=== PATIENT | male | born 1970 | race Caucasian/White ===

== ENCOUNTER 2025-04-26 12:29 | Inpatient (IN) | payer OTHER, SELFPAY ==
[2025-04-26] VITALS (7 sets, daily range): BP systolic 129–149; BP diastolic 74–92; PULSE 81–98; RESP 12–20; TEMP 36.4–36.9; O2SAT 95–99; BMI 25.8
--- NOTE | 2025-04-26 13:03 | ECG_ITS ---
Test Reason : OMORUNA Blood Pressure : */* mmHG Vent. Rate : 98 BPM Atrial Rate : 98 BPM P-R Int : 174 ms QRS Dur : 134 ms QT Int : 394 ms P-R-T Axes : 77 35 44 degrees QTcB Int : 503 ms Sinus rhythm with Fusion complexes Right bundle branch block Abnormal ECG No previous ECGs available Referred By: Mindy Hickey Electronically Signed By: Darron Oh
[2025-04-26 13:35] LABS: MANUAL DIFF FLAG NO
[2025-04-26 13:47] LABS: Hematocrit 37.6 % (42.0-52.0); Hemoglobin 12.9 g/dl (14.0-18.0); Imm Gran Abs Auto 0.03 X10*3/uL (0.00-0.03); Imm Gran Pct Auto 0.6 % (0.0-0.4); Lymphocytes Absolute Auto 0.9 X10*3/uL (1.2-4.9); Mean Corpuscular HGB Conc 34.3 g/dl (31.0-36.0); Mean Corpuscular Hemoglobin 31.9 pg (27.0-33.0); Mean Corpuscular Volume 92.8 fL (80.0-98.0); NRBC Abs Auto 0.000 X10*3/uL (0.0-0.012); NRBC Pct Auto 0.0 /100WBC (0.0-0.2); Red Blood Count 4.05 X10*6/uL (4.60-5.80); White Blood Count 4.7 X10*3/uL (4.8-10.8)
[2025-04-26] MEDS: Lactated Ringers 1,000 ML 999 ML IV ×2 (13:50→16:34)
[2025-04-26] MEDS: diazePAM 10 MG/2 ML CARTRIDGE 5 MG IVPUSH (13:50)
[2025-04-26] MEDS: Thiamine HCL 200 MG in 0.9 % Sodium Chloride 100 ML 204 MG IV (13:53)
[2025-04-26] MEDS: Magnesium Sulfate/H2O 2 GM/50 ML PIGGYBACK IV (13:53)
[2025-04-26 13:57] LABS: Platelet Count 94 X10*3/uL (160-400)
[2025-04-26 14:07] LABS: Acetaminophen LAB < 3 mcg/mL (<30); Salicylate < 5.0 mg/dL (15-30)
--- NOTE | 2025-04-26 14:09 | PC.NURSE ---
pt is alert and oriented, skin flushed in color, respirations even and unlabored, ls clear, pt reports being a daily drinker and is cutting down om his drinking, states he typically drinks a coupe od strong drinks in a day, last drink was this morning, no visible hand tremor at this time is reporting a headache, nausea and keeps spitting into a vomit bag and having hiccups, also states feeling anxious, vs stable at this time, pt also states that he has not eaten anything in 10 days, bowel sounds in all 4 quadrants and abd soft and non-tender pt is stating having blood in his stool for the last couple of days
[2025-04-26 14:20] LABS: Alanine Aminotransferase 136 U/L (0-40); Albumin Level 4.8 g/dL (3.5-5.0); Alkaline Phosphatase 105 U/L (39-117); Anion Gap 33 (12-20); Aspartate Amino Transferase 171 U/L (5-37); Blood Urea Nitrogen 20 mg/dL (9-16); Calcium 8.8 mg/dL (8.4-10.2); Carbon Dioxide 15 mmol/L (22-29); Chloride 91 mmol/L (96-108); Creatinine Clr Calc Pharmacy 104.1; Estimated Glomerular Filt Rate > 60; Lipase 53 U/L (8-78); Magnesium 2.2 mg/dL (1.6-2.6); Potassium 4.9 mmol/L (3.3-5.1); Sodium 134 mmol/L (135-145); Total Protein 7.7 g/dL (6.5-8.0)
[2025-04-26 15:14] LABS: Appearance Urine Cloudy; Glucose Urine UA Negative (Negative); PH 6.0 (5.0-9.0); Specific Gravity - Urine 1.020 (1.005-1.025); UMIC TRIGGER UACC YES
[2025-04-26 15:24] LABS: Cannabinoid Screen Urine Not Detected (Not Detect)
[2025-04-26 17:02] LABS: Venous Blood Gas Refer to POC result
[2025-04-26 17:07] LABS: VBG HCO3 19 mmol/L (22-26); VBG O2 % Saturation 100.0 %
[2025-04-26 17:21] LABS: Anion Gap 29 (12-20); Blood Urea Nitrogen 17 mg/dL (9-16); Calcium 8.8 mg/dL (8.4-10.2); Carbon Dioxide 18 mmol/L (22-29); Chloride 91 mmol/L (96-108); Creatinine Clr Calc Pharmacy 115.5; Estimated Glomerular Filt Rate > 60; Potassium 3.8 mmol/L (3.3-5.1); Sodium 134 mmol/L (135-145)
--- NOTE | 2025-04-26 17:26 | ED.GENADULT ---
HPI - General Adult General Chief complaint: General Medical Stated complaint[facility] Time Seen by Provider: 04/26/25 16:09 Source: patient, RN notes reviewed and old records reviewed Mode of arrival: EMS Limitations: no limitations History of Present Illness ED Provider: Daniele ROSARIO narrative: 55-year-old male with a past medical history significant for alcohol dependence presents for evaluation of alcohol withdrawal. Patient reports he has been drinking daily for about 5 weeks pain He reports having at least 5 drinks per day in his last drink was at 9 a.m. this morning [facility]. He endorses anxiety, restlessness, nausea and vomiting He reports a history of alcohol withdrawal seizures but does not believe he has had any recently He complains of a mild headache. He denies any abdominal pain but does complain of some bright red blood per rectum He noticed this about 5 days ago He denies any history of esophageal varices Related Data Allergies Allergy/AdvReac Type Severity Reaction Status Date / Time No Known Allergies Allergy Verified 04/26/25 12:57 Review of Systems Constitutional: Constitutional: Denies body ache(s), Denies chills, Denies fever(s) and Reports headache(s) Eyes: Eyes: Denies blurry vision ENT: Denies vertigo, Denies dizziness and Reports headache(s) Cardiovascular: Cardiovascular: Denies chest pain and Denies dyspnea on exertion Respiratory: Respiratory: Denies cough and Denies dyspnea on exertion Gastrointestinal: Gastrointestinal: Denies abdominal pain, Denies melena, Reports hematochezia, Denies diarrhea, Denies loose stools, Reports nausea, Reports vomiting and Denies hematemesis Musculoskeletal: Musculoskeletal: Denies back pain Integumentary/Breasts: Skin/Breast: Denies rash Neurologic: Denies vertigo, Denies dizziness and Reports headache(s) Psychiatric: Psychiatric: Reports anxiety and Denies suicidal ideation PMFSH Social History Social History Alcohol intake: current Alcohol intake frequency: 3 or more drinks per day Smoked in Last 30 Days: No Use of substances other than those prescribed or required for medical reasons: Yes Substance Use Type: Marijuana Substance Use Frequency: Occasionally Advance Directives: No Advance Directives Information Provided: No Do you have a plan to hurt others: No Plan Physical Exam ED Vital Signs: Vital Signs - 24 hr 04/26/25 12:50 04/26/25 14:06 04/26/25 15:57 Temperature 97.9 F 98.4 F Pulse Rate 93 94 87 Respiratory Rate 20 18 16 Blood Pressure 149/91 H 144/92 H 149/85 H Pulse Oximetry 98 99 98 Oxygen Delivery Method Room Air Room Air Room Air 04/26/25 17:17 Temperature Pulse Rate 83 Respiratory Rate 18 Blood Pressure 138/74 Pulse Oximetry 98 Oxygen Delivery Method Room Air BMI result Body Mass Index 25.8 Const General: healthy appearing, comfortable, no acute distress, alert and awake Nutritional Appearance: well nourished Orientation/consciousness: patient oriented x3 HENMT Head: Yes normocephalic and Yes atraumatic Eyes Eyelids: Yes eyelids normal Conjunctivae: conjunctivae normal Sclerae: sclerae normal Corneas: corneas normal Pupils: Equal, round and reactive pupils present EOM: EOMs intact bilaterally Neck Neck: Yes full ROM Resp Effort & Inspection: normal respiratory effort, able to speak in complete sentences and not labored Cardio Rate: regular rate Rhythm: regular rhythm GI Other: Patient declined rectal examination Inspection: No distended Palpation (GI): Soft to palpation, not firm, nontender, no guarding and not rigid Skin General skin exam: elasticity normal Neuro General: patient oriented x3 Cranial nerves: Yes CN's II-XII intact bilaterally, Yes Equal, round and reactive pupils present and Yes Bilaterally intact EOM present Cognition (Neuro): normal cognition Extrem Other: Moving all extremities well without any obvious deformities Course Reevaluation(s) Reevaluation #1: Patient's repeat BNP still shows a fairly significant anion gap of 29 with a carbon dioxide of 18. We will discuss with the hospitalist for admission. I ordered phenobarb for treatment of his alcohol withdrawal Time: 17:38 Medications Administered Discontinued Medications Generic Name Dose Route Start Last Admin Trade Name Freq PRN Reason Stop Dose Admin Diazepam 5 mg 04/26/25 13:36 04/26/25 13:50 Diazepam 10 Mg/2 Ml Cartridge IVPUSH 04/26/25 13:37 5 mg STAT STA Administration Lactated Ringer's 1,000 mls @ 999 mls/hr 04/26/25 13:36 04/26/25 16:05 Lr IV 04/26/25 14:36 Infused .Q1H1M ONE Infusion Thiamine HCl 200 mg/ Sodium 102 mls @ 204 mls/hr 04/26/25 13:36 04/26/25 14:30 Chloride IV 04/26/25 14:05 Infused ONCE ONE Infusion Magnesium Sulfate 2 gm in 50 mls @ 25 mls/hr 04/26/25 13:36 04/26/25 15:56 Magnesium Sulfate/H2o IV 04/26/25 15:35 Infused ONCE ONE Infusion Lactated Ringer's 1,000 mls @ 999 mls/hr 04/26/25 16:30 04/26/25 16:34 Lr IV 04/26/25 17:30 999 mls/hr .Q1H1M AJITH Administration Folic Acid 1 mg/ Sodium 50.2 mls @ 100.4 mls/hr 04/26/25 17:00 04/26/25 17:14 Chloride IV 04/26/25 17:29 100.4 mls/hr ONCE ONE Administration Ondansetron HCl 4 mg 04/26/25 13:36 04/26/25 13:50 Ondansetron Hcl 4 Mg/2 Ml Vial IVPUSH 04/26/25 13:37 4 mg ONCE ONE Administration Medical Decision Making Medical Decision Making [facility] Narrative: 55-year-old male presents for evaluation of alcohol dependence. He reports his last drink was at 9 a.m. and endorses alcohol withdrawal symptoms. His CIWA was reportedly 5 on arrival. He was treated with lactated Ringer's, with thiamine, IV diazepam prior to my evaluation. He reports anxiety, restlessness and continued nausea but is not vomiting. His vital signs are stable. His physical exam is quite reassuring, he is resting comfortably. His labs are significant for a thrombocytopenia which is likely due to alcoholic liver disease. He has a very mild anemia with a hemoglobin of 12.9 and a hematocrit of 37.6. We do not have any previous labs for comparison. The patient does endorse bright red blood per rectum and denies any history of esophageal varices. He has not hematemesis. The patient refused digital rectal examination for guaiac testing. We will attempt to send a stool sample for guaiac testing if he is able to provide one. The patient has multiple electrolyte abnormalities including a sodium 134, chloride of 91, carbon dioxide level of 15 with an anion gap of 33 and an elevated BUN of 20. This is likely due to alcoholic ketoacidosis. He also has elevated AST and ALT likely due to alcoholic liver disease. We will treat with IV fluids, I will obtain a VBG and a repeat BMP after a second-degree with fluids Differential Diagnosis Differential Diagnoses: The differential diagnosis associated with the presentation includes Ketoacidosis Starvation ketosis JESU Liver cirrhosis Hemorrhoids GI bleed Admission/Observation Consideration of admission/observation: Escalation of care including admission/observation considered Lab Data MDM Lab Attestation statement: I reviewed the patient's lab results. As above 04/26/25 13:30 04/26/25 16:51 Labs: Lab Results 04/26/25 04/26/25 04/26/25 Range/Units 13:30 15:04 16:50 WBC 4.7 L (4.8-10.8) X10*3/uL RBC 4.05 L (4.60-5.80) X10*6/uL Hgb 12.9 L (14.0-18.0) g/dl Hct 37.6 L (42.0-52.0) % MCV 92.8 (80.0-98.0) fL MCH 31.9 (27.0-33.0) pg MCHC 34.3 (31.0-36.0) g/dl RDW 14.2 (11.0-16.0) % Plt Count 94 L (160-400) X10*3/uL MPV 11.1 (9.4-12.4) fL Immature Gran % (Auto) 0.6 H (0.0-0.4) % Neut % (Auto) 68.1 (45-73) % Lymph % (Auto) 19.7 L (20-40) % [place] % (Auto) 9.4 (2-11) % Eos % (Auto) 1.1 (0-4) % Baso % (Auto) 1.1 (0-2) % Lymph # (Auto) 0.9 L (1.2-4.9) X10*3/uL [place] # (Auto) 0.4 (0.1-1.2) X10*3/uL Eos # (Auto) 0.1 (0.0-0.4) X10*3/uL Baso # (Auto) 0.1 (0.0-0.2) X10*3/uL Abs Immat Gran (auto) 0.03 (0.00-0.03) X10*3/uL Absolute Neuts (auto) 3.2 (2.0-8.3) x10*3/uL Absolute Nucleated RBC 0.000 (0.0-0.012) X10*3/uL Nucleated RBC % (auto) 0.0 (0.0-0.2) /100WBC VBG pH 7.46 H (7.32-7.43) VBG pCO2 27 mmHg VBG pO2 131 mmHg VBG HCO3 19 L (22-26) mmol/L VBG O2 Saturation 100.0 % VBG Base Excess -2.6 mmol/L Sodium 134 L (135-145) mmol/L Potassium 4.9 (3.3-5.1) mmol/L Chloride 91 L (96-108) mmol/L Carbon Dioxide 15 L (22-29) mmol/L Anion Gap 33 H (12-20) BUN 20 H (9-16) mg/dL Creatinine 0.91 (0.5-1.4) mg/dL Estim Creat Clear Calc 104.1 Estimated GFR > 60 Random Glucose 89 (60-115) mg/dL Calcium 8.8 (8.4-10.2) mg/dL Magnesium 2.2 (1.6-2.6) mg/dL Total Bilirubin 1.3 H (0.0-1.0) mg/dL Direct Bilirubin 0.4 (0.0-0.5) mg/dL AST 171 H (5-37) U/L ALT 136 H (0-40) U/L Alkaline Phosphatase 105 (39-117) U/L Total Protein 7.7 (6.5-8.0) g/dL Albumin 4.8 (3.5-5.0) g/dL Lipase 53 (8-78) U/L Urine Color Dark Yellow Urine Appearance Cloudy Urine pH 6.0 (5.0-9.0) Ur Specific [place] 1.020 (1.005-1.025) Urine Protein 100 (2+) H (Neg-Trace) mg/dL Urine Glucose (UA) Negative (Negative) mg/dL Urine Ketones 80 (Negative) mg/dL Urine Blood Small (1+) H (Negative) Urine Nitrite Negative (Negative) Ur Leukocyte Esterase Negative (Negative) Urine RBC 0-2 (0-2) /HPF Urine WBC 0-5 (0-5) /HPF Ur Squamous Epith Cells 0-2 (0-2) /HPF Ur Transition Epith Cell Present Urine Bacteria Trace (None Seen) Hyaline Casts 3-5 (0-2) /LPF Granular Casts Present Salicylates < 5.0 L (15-30) mg/dL Urine Opiates Screen Not Detected (Not Detect) Ur Buprenorphine Scrn Not Detected (Not Detect) ng/mL Ur Oxycodone Screen Not Detected (Not Detect) ng/mL Urine Methadone Screen Not Detected (Not Detect) ng/mL Urine Fentanyl Screen Not Detected (Not Detect) Acetaminophen < 3 (<30) mcg/mL Ur Barbiturates Screen Not Detected (Not Detect) Ur Phencyclidine Scrn Not Detected (Not Detect) Ur Amphetamines Screen Not Detected (Not Detect) U Benzodiazepines Scrn POSITIVE H (Not Detect) Urine Cocaine Screen Not Detected (Not Detect) U Marijuana (THC) Screen Not Detected (Not Detect) Ethyl Alcohol 134 mg/dL 04/26/25 Range/Units 16:51 WBC (4.8-10.8) X10*3/uL RBC (4.60-5.80) X10*6/uL Hgb (14.0-18.0) g/dl Hct (42.0-52.0) % MCV (80.0-98.0) fL MCH (27.0-33.0) pg MCHC (31.0-36.0) g/dl RDW (11.0-16.0) % Plt Count (160-400) X10*3/uL MPV (9.4-12.4) fL Immature Gran % (Auto) (0.0-0.4) % Neut % (Auto) (45-73) % Lymph % (Auto) (20-40) % [place] % (Auto) (2-11) % Eos % (Auto) (0-4) % Baso % (Auto) (0-2) % Lymph # (Auto) (1.2-4.9) X10*3/uL [place] # (Auto) (0.1-1.2) X10*3/uL Eos # (Auto) (0.0-0.4) X10*3/uL Baso # (Auto) (0.0-0.2) X10*3/uL Abs Immat Gran (auto) (0.00-0.03) X10*3/uL Absolute Neuts (auto) (2.0-8.3) x10*3/uL Absolute Nucleated RBC (0.0-0.012) X10*3/uL Nucleated RBC % (auto) (0.0-0.2) /100WBC VBG pH (7.32-7.43) VBG pCO2 mmHg VBG pO2 mmHg VBG HCO3 (22-26) mmol/L VBG O2 Saturation % VBG Base Excess mmol/L Sodium 134 L (135-145) mmol/L Potassium 3.8 D (3.3-5.1) mmol/L Chloride 91 L (96-108) mmol/L Carbon Dioxide 18 L (22-29) mmol/L Anion Gap 29 H (12-20) BUN 17 H (9-16) mg/dL Creatinine 0.82 (0.5-1.4) mg/dL Estim Creat Clear Calc 115.5 Estimated GFR > 60 Random Glucose 81 (60-115) mg/dL Calcium 8.8 (8.4-10.2) mg/dL Magnesium (1.6-2.6) mg/dL Total Bilirubin (0.0-1.0) mg/dL Direct Bilirubin (0.0-0.5) mg/dL AST (5-37) U/L ALT (0-40) U/L Alkaline Phosphatase (39-117) U/L Total Protein (6.5-8.0) g/dL Albumin (3.5-5.0) g/dL Lipase (8-78) U/L Urine Color Urine Appearance Urine pH (5.0-9.0) Ur Specific [place] (1.005-1.025) Urine Protein (Neg-Trace) mg/dL Urine Glucose (UA) (Negative) mg/dL Urine Ketones (Negative) mg/dL Urine Blood (Negative) Urine Nitrite (Negative) Ur Leukocyte Esterase (Negative) Urine RBC (0-2) /HPF Urine WBC (0-5) /HPF Ur Squamous Epith Cells (0-2) /HPF Ur Transition Epith Cell Urine Bacteria (None Seen) Hyaline Casts (0-2) /LPF Granular Casts Salicylates (15-30) mg/dL Urine Opiates Screen (Not Detect) Ur Buprenorphine Scrn (Not Detect) ng/mL Ur Oxycodone Screen (Not Detect) ng/mL Urine Methadone Screen (Not Detect) ng/mL Urine Fentanyl Screen (Not Detect) Acetaminophen (<30) mcg/mL Ur Barbiturates Screen (Not Detect) Ur Phencyclidine Scrn (Not Detect) Ur Amphetamines Screen (Not Detect) U Benzodiazepines Scrn (Not Detect) Urine Cocaine Screen (Not Detect) U Marijuana (THC) Screen (Not Detect) Ethyl Alcohol mg/dL Discharge Plan Discharge Clinical Impression: Alcohol withdrawal Patient Disposition: Admitted As Inpatient Print Language: Andorran
--- NOTE | 2025-04-26 18:05 | P.HPHOSP_ITS ---
History of Present Illness Date of Service: 04/26/25 Chief Complaint: tremors 55M PMH alcohol dependence, mood disorder presented with withdrawal symptoms. Patient states that he has been trying to cut back on his drinking and has since been starting to have difficulty sleeping, tremulous so he came to ED. Patient is also noted worsening appetite over the past week with close to 0 nutritional intake. Also noted to have epistaxis, bleeding gums, bright red blood per rectum. In ED noted to have anion gap metabolic acidosis with positive ketones in urine. Review of Systems 2 Review of Systems: Yes all other systems are reviewed and are negative [facility] Medical History (Updated 04/26/25 @ 18:07 by Yayo Godinez MD) Alcohol dependence Social History Alcohol intake: current Alcohol intake frequency: 3 or more drinks per day Smoked in Last 30 Days: No Use of substances other than those prescribed or required for medical reasons: Yes Substance Use Type: Marijuana Substance Use Frequency: Occasionally Advance Directives: No Advance Directives Information Provided: No Do you have a plan to hurt others: No Plan Meds Allergies Allergy/AdvReac Type Severity Reaction Status Date / Time No Known Allergies Allergy Verified 04/26/25 12:57 Active Medications: Current Medications Acetaminophen (Acetaminophen 325 Mg Tablet) 650 mg PO Q6H PRN PRN Reason: Pain, Mild 1-3,fever,headache Calcium Carbonate (Calcium Carbonate 750 Mg Tab.Chew) 750 mg PO Q4H PRN PRN Reason: Heartburn Folic Acid (Folic Acid 1 Mg Tablet) 1 mg PO DAILY [facility] Thiamine HCl 100 mg/ Sodium (Chloride) 101 mls @ 202 mls/hr IV BID AJITH Magnesium Hydroxide (Milk Of Magnesia 30 Ml Oral.Susp) 30 ml PO DAILY PRN PRN Reason: Constipation Melatonin (Melatonin 3 Mg Tablet) 6 mg PO BEDTIME PRN PRN Reason: Insomnia Multivitamins/Vitamin C (Multivitamin Tablet) 1 tab PO DAILY AJITH Omeprazole (Omeprazole 20 Mg Capsule.Dr) 20 mg PO DAILY@0630 AJITH Ondansetron HCl (Ondansetron Hcl 4 Mg/2 Ml Vial) 4 mg IVPUSH Q6H PRN PRN Reason: Nausea Pharmacy Consult (Consult Rx Etoh Phenob Im/Po) 1 each MISCELLANE ONCE PRN; Protocol PRN Reason: Consult order Phenobarbital (Phenobarbital 30 Mg Tablet) 60 mg PO BID [facility] Stop: 04/28/25 21:01 Phenobarbital (Phenobarbital 30 Mg Tablet) 30 mg PO BID [facility] Stop: 04/30/25 21:01 Phenobarbital (Phenobarbital 30 Mg Tablet) 30 mg PO DAILY [facility]; Protocol Stop: 05/02/25 09:01 Phenobarbital Sodium (Phenobarbital Sodium 130 Mg/Ml Vial Im Q3hx2) 245 mg IM Q3H [facility] Stop: 04/27/25 00:01 Sodium Chloride (0.9 % Sodium Chloride Flush 3 Ml Syringe) 3 ml IVFLUSH QSHIFT [facility] Physical Exam 2 Vital Signs and Narrative: Vital Signs: Last Vital Signs Temp 98.4 F 04/26/25 15:57 Pulse 83 04/26/25 17:17 Resp 18 04/26/25 17:17 BP 138/74 04/26/25 17:17 Pulse Ox 98 04/26/25 17:17 O2 Del Method Room Air 04/26/25 17:17 BMI result Body Mass Index 25.8 Alert oriented x3, tremulous, ill-appearing, left eye partially closed from previous orbital fracture, abdomen soft and nontender nondistended, no edema, dry blood on mouth Results Labs 04/26/25 13:30 04/26/25 16:51 Labs: Laboratory Results - last 24 hr 04/26/25 04/26/25 04/26/25 13:30 15:04 16:50 MCV 92.8 MCH 31.9 MCHC 34.3 RDW 14.2 Plt Count 94 L MPV 11.1 Immature Gran % (Auto) 0.6 H Neut % (Auto) 68.1 Lymph % (Auto) 19.7 L [place] % (Auto) 9.4 Eos % (Auto) 1.1 Baso % (Auto) 1.1 Lymph # (Auto) 0.9 L [place] # (Auto) 0.4 Eos # (Auto) 0.1 Baso # (Auto) 0.1 Abs Immat Gran (auto) 0.03 Absolute Neuts (auto) 3.2 Absolute Nucleated RBC 0.000 Nucleated RBC % (auto) 0.0 VBG pH 7.46 H VBG pCO2 27 VBG pO2 131 VBG HCO3 19 L VBG O2 Saturation 100.0 VBG Base Excess -2.6 Anion Gap 33 H Estim Creat Clear Calc 104.1 Estimated GFR > 60 Random Glucose 89 Calcium 8.8 Magnesium 2.2 Total Bilirubin 1.3 H Direct Bilirubin 0.4 AST 171 H ALT 136 H Alkaline Phosphatase 105 Total Protein 7.7 Albumin 4.8 Lipase 53 Urine Color Dark Yellow Urine Appearance Cloudy Urine pH 6.0 Ur Specific [place] 1.020 Urine Protein 100 (2+) H Urine Glucose (UA) Negative Urine Ketones 80 Urine Blood Small (1+) H Urine Nitrite Negative Ur Leukocyte Esterase Negative Urine RBC 0-2 Urine WBC 0-5 Ur Squamous Epith Cells 0-2 Ur Transition Epith Cell Present Urine Bacteria Trace Hyaline Casts 3-5 Granular Casts Present Salicylates < 5.0 L Urine Opiates Screen Not Detected Ur Buprenorphine Scrn Not Detected Ur Oxycodone Screen Not Detected Urine Methadone Screen Not Detected Urine Fentanyl Screen Not Detected Acetaminophen < 3 Ur Barbiturates Screen Not Detected Ur Phencyclidine Scrn Not Detected Ur Amphetamines Screen Not Detected U Benzodiazepines Scrn POSITIVE H Urine Cocaine Screen Not Detected U Marijuana (THC) Screen Not Detected Ethyl Alcohol 134 04/26/25 16:51 MCV MCH MCHC RDW Plt Count MPV Immature Gran % (Auto) Neut % (Auto) Lymph % (Auto) [place] % (Auto) Eos % (Auto) Baso % (Auto) Lymph # (Auto) [place] # (Auto) Eos # (Auto) Baso # (Auto) Abs Immat Gran (auto) Absolute Neuts (auto) Absolute Nucleated RBC Nucleated RBC % (auto) VBG pH VBG pCO2 VBG pO2 VBG HCO3 VBG O2 Saturation VBG Base Excess Anion Gap 29 H Estim Creat Clear Calc 115.5 Estimated GFR > 60 Random Glucose 81 Calcium 8.8 Magnesium Total Bilirubin Direct Bilirubin AST ALT Alkaline Phosphatase Total Protein Albumin Lipase Urine Color Urine Appearance Urine pH Ur Specific [place] Urine Protein Urine Glucose (UA) Urine Ketones Urine Blood Urine Nitrite Ur Leukocyte Esterase Urine RBC Urine WBC Ur Squamous Epith Cells Ur Transition Epith Cell Urine Bacteria Hyaline Casts Granular Casts Salicylates Urine Opiates Screen Ur Buprenorphine Scrn Ur Oxycodone Screen Urine Methadone Screen Urine Fentanyl Screen Acetaminophen Ur Barbiturates Screen Ur Phencyclidine Scrn Ur Amphetamines Screen U Benzodiazepines Scrn Urine Cocaine Screen U Marijuana (THC) Screen Ethyl Alcohol Assessment and Plan (1) Alcohol withdrawal: Status: Acute Plan 55M PMH alcohol dependence, mood disorder presented with withdrawal symptoms Alcohol dependence with acute withdrawal Phenobarb protocol, monitor CIWA, monitor on telemetry, monitor electrolytes, vitamin replacement Epistaxis and bleeding gums bright red blood per rectum Has likely chronic thrombocytopenia from alcohol, though not significant enough to cause bleeding, check INR Monitor hemoglobin Mood disorder Continue Remeron, trazodone, gabapentin DVT prophylaxis-mechanical due to bleeding Full code Given degree of withdrawal requiring phenobarb and at risk for seizure as patient has history of withdrawal seizures expected require at least 2 midnights inpatient Quality Stroke Does the patient have a stroke diagnosis?: No VTE Prior VTE?: No VTE Risk Level:: Medical - moderate - high VTE Device Contraindication: Treatment Not Indicated VTE Drug Contraindication: N/A - Med Ordered
[2025-04-26] MEDS: PHENobarbitaL sodium 130 MG/ML IM ONCE 328 MG IM (19:35)
--- NOTE | 2025-04-26 19:57 | PC.NURSE ---
CIWA 9, phenobarbital IM given.
[2025-04-26] MEDS: PHENobarbitaL sodium 130 MG/ML VIAL IM Q3Hx2 245 MG IM (22:01)
[2025-04-26] MEDS: Thiamine HCL 100 MG in 0.9 % Sodium Chloride 100 ML 202 MG IV (22:02)
[2025-04-27] VITALS (11 sets, daily range): BP systolic 124–155; BP diastolic 77–90; PULSE 70–95; RESP 12–20; TEMP 36.4–37.1; O2SAT 94–99; BMI 26.5
[2025-04-27] MEDS: PHENobarbitaL sodium 130 MG/ML VIAL IM Q3Hx2 245 MG IM (01:41)
[2025-04-27] MEDS: 0.9 % Sodium Chloride Flush 3 ML SYRINGE IVFLUSH ×4 (01:42→22:45)
[2025-04-27 05:54] LABS: INTERNATIONAL NORM RATIO 0.9 (0.9-1.1); Prothrombin Time 11.2 SEC (11.2-13.5)
[2025-04-27 06:02] LABS: Alanine Aminotransferase 116 U/L (0-40); Albumin Level 4.1 g/dL (3.5-5.0); Alkaline Phosphatase 92 U/L (39-117); Anion Gap 25 (12-20); Aspartate Amino Transferase 146 U/L (5-37); Blood Urea Nitrogen 13 mg/dL (9-16); Calcium 8.9 mg/dL (8.4-10.2); Carbon Dioxide 20 mmol/L (22-29); Chloride 94 mmol/L (96-108); Creatinine Clr Calc Pharmacy 105.2; Estimated Glomerular Filt Rate > 60; Magnesium 2.3 mg/dL (1.6-2.6); Potassium 3.5 mmol/L (3.3-5.1); Sodium 135 mmol/L (135-145); Total Protein 6.3 g/dL (6.5-8.0)
[2025-04-27 06:05] LABS: Hematocrit 33.1 % (42.0-52.0); Hemoglobin 11.5 g/dl (14.0-18.0); Mean Corpuscular HGB Conc 34.7 g/dl (31.0-36.0); Mean Corpuscular Hemoglobin 32.0 pg (27.0-33.0); Mean Corpuscular Volume 92.2 fL (80.0-98.0); NRBC Abs Auto 0.000 X10*3/uL (0.0-0.012); NRBC Pct Auto 0.0 /100WBC (0.0-0.2); PLT CLUMP 1; Red Blood Count 3.59 X10*6/uL (4.60-5.80)
[2025-04-27 06:07] LABS: Platelet Count 83 X10*3/uL (160-400); White Blood Count 5.6 X10*3/uL (4.8-10.8)
[2025-04-27] MEDS: Thiamine HCL 100 MG in 0.9 % Sodium Chloride 100 ML 200 MG IV (08:29)
--- NOTE | 2025-04-27 09:40 | MHC.CM.PN ---
PATIENT STATES THAT HE LIVES IN [facility] AND THAT HE IS [facility] CONNE[facility], INCLUDING MD.'HE IS UNABLE TO RECALL THE NAME OF PCP AT THIS TIME. HE IS INDEPENDENT AT BASELINE. SEIZURE PADS ARE IN PLACE AND PATIENT IS FEELING NAUSEOUS. HE IS AWARE THAT AT ANYTIME DURING HIS STAY, HE CAN ASK FOR ASSISTANCE WITH COMPLETING HCP. HE ARRIVED BY EMS AND WILL NEED ASSIST SECURING TRANSPORT HOME. CASE MANAGEMENT FOLLOWING
--- NOTE | 2025-04-27 09:55 | PHA.MEDREC ---
Addendum entered by Young Pappas PharmD 04/27/25 11:46: [facility] REVIEWED Original Note: Pharmacy Consult ? Medication Reconciliation Pharmacy has completed the medication reconciliation. Spoke with pt and I had a list from [place] pt was able to verify with me. Pt was prescribed Naltrexone but states he has not been taking that medication for a bit .
--- NOTE | 2025-04-27 10:10 | P.PNIM_ITS ---
Subjective Subjective Date of Service: 04/27/25 Interval History: some tremor Physical Exam 2 Exam: Exam: General: AO X 3, diaphoretic, tremor Resp: CTA bilateral, no accessory muscles used CVS: S1,S2,RRR GI: soft, non tender, non distended Vital Signs: Vital Signs: Last Vital Signs Temp 98.8 F 04/27/25 08:26 Pulse 85 04/27/25 08:26 Resp 14 04/27/25 08:26 BP 130/80 04/27/25 08:26 Pulse Ox 97 04/27/25 08:26 O2 Del Method Room Air 04/27/25 08:26 BMI result Body Mass Index 25.8 Objective Data Active Medications Acetaminophen (Acetaminophen 325 Mg Tablet) 650 mg PO Q6H PRN PRN Reason: Pain, Mild 1-3,fever,headache Calcium Carbonate (Calcium Carbonate 750 Mg Tab.Chew) 750 mg PO Q4H PRN PRN Reason: Heartburn Escitalopram Oxalate (Escitalopram Oxalate 10 Mg Tablet) 10 mg PO DAILY [facility] Ferrous Sulfate (Ferrous Sulfate 324 Mg Tablet.) 324 mg PO DAILY [facility] Folic Acid (Folic Acid 1 Mg Tablet) 1 mg PO DAILY [facility] Last Admin: 04/27/25 08:30 Dose: 1 mg Documented By: DARLIN Gabapentin (Gabapentin 600 Mg Tablet) 600 mg PO TID [facility] Thiamine HCl 100 mg/ Sodium (Chloride) 101 mls @ 202 mls/hr IV BID [facility] Last Infusion: 04/27/25 09:00 Dose: Infused Documented By: DARLIN Magnesium Hydroxide (Milk Of Magnesia 30 Ml Oral.Susp) 30 ml PO DAILY PRN PRN Reason: Constipation Melatonin (Melatonin 3 Mg Tablet) 6 mg PO BEDTIME PRN PRN Reason: Insomnia Mirtazapine (Mirtazapine 15 Mg Tablet) 45 mg PO BEDTIME [facility] Multivitamins/Vitamin C (Multivitamin Tablet) 1 tab PO DAILY [facility] Last Admin: 04/27/25 08:29 Dose: 1 tab Documented By: DARLIN Omeprazole (Omeprazole 20 Mg Capsule.) 20 mg PO DAILY@0630 [facility] Last Admin: 04/27/25 05:47 Dose: 20 mg Documented By: ISABELLEOPEValeria Ondansetron HCl (Ondansetron Hcl 4 Mg/2 Ml Vial) 4 mg IVPUSH Q6H PRN PRN Reason: Nausea Pharmacy Consult (Consult Rx Etoh Phenob Im/Po) 1 each MISCELLANE ONCE PRN; Protocol PRN Reason: Consult order Phenobarbital (Phenobarbital 30 Mg Tablet) 60 mg PO BID [facility] Stop: 04/28/25 21:01 Last Admin: 04/27/25 08:29 Dose: 60 mg Documented By: DARLIN Phenobarbital (Phenobarbital 30 Mg Tablet) 30 mg PO BID [facility] Stop: 04/30/25 21:01 Phenobarbital (Phenobarbital 30 Mg Tablet) 30 mg PO DAILY [facility]; Protocol Stop: 05/02/25 09:01 Sodium Chloride (0.9 % Sodium Chloride Flush 3 Ml Syringe) [address] [facility] [facility] Last Admin: 04/27/25 08:28 Dose: 3 ml Documented By: DARLIN Trazodone HCl (Trazodone Hcl 50 Mg Tablet) 50 mg PO BEDTIME [facility] Labs 04/27/25 05:27 04/27/25 05:26 Labs: Laboratory Results - last 24 hr 04/26/25 04/26/25 04/26/25 13:30 15:04 16:50 MCV 92.8 MCH 31.9 MCHC 34.3 RDW 14.2 Plt Count 94 L MPV 11.1 Immature Gran % (Auto) 0.6 H Neut % (Auto) 68.1 Lymph % (Auto) 19.7 L [place] % (Auto) 9.4 Eos % (Auto) 1.1 Baso % (Auto) 1.1 Lymph # (Auto) 0.9 L [place] # (Auto) 0.4 Eos # (Auto) 0.1 Baso # (Auto) 0.1 Abs Immat Gran (auto) 0.03 Absolute Neuts (auto) 3.2 Absolute Nucleated RBC 0.000 Nucleated RBC % (auto) 0.0 PT INR VBG pH 7.46 H VBG pCO2 27 VBG pO2 131 VBG HCO3 19 L VBG O2 Saturation 100.0 VBG Base Excess -2.6 Anion Gap 33 H Estim Creat Clear Calc 104.1 Estimated GFR > 60 Random Glucose 89 Calcium 8.8 Magnesium 2.2 Total Bilirubin 1.3 H Direct Bilirubin 0.4 AST 171 H ALT 136 H Alkaline Phosphatase 105 Total Protein 7.7 Albumin 4.8 Lipase 53 Urine Color Dark Yellow Urine Appearance Cloudy Urine pH 6.0 Ur Specific [place] 1.020 Urine Protein 100 (2+) H Urine Glucose (UA) Negative Urine Ketones 80 Urine Blood Small (1+) H Urine Nitrite Negative Ur Leukocyte Esterase Negative Urine RBC 0-2 Urine WBC 0-5 Ur Squamous Epith Cells 0-2 Ur Transition Epith Cell Present Urine Bacteria Trace Hyaline Casts 3-5 Granular Casts Present Salicylates < 5.0 L Urine Opiates Screen Not Detected Ur Buprenorphine Scrn Not Detected Ur Oxycodone Screen Not Detected Urine Methadone Screen Not Detected Urine Fentanyl Screen Not Detected Acetaminophen < 3 Ur Barbiturates Screen Not Detected Ur Phencyclidine Scrn Not Detected Ur Amphetamines Screen Not Detected U Benzodiazepines Scrn POSITIVE H Urine Cocaine Screen Not Detected U Marijuana (THC) Screen Not Detected Ethyl Alcohol 134 04/26/25 04/27/25 04/27/25 16:51 05:26 05:27 MCV 92.2 MCH 32.0 MCHC 34.7 RDW 14.1 Plt Count 83 L MPV 11.2 Immature Gran % (Auto) Neut % (Auto) Lymph % (Auto) [place] % (Auto) Eos % (Auto) Baso % (Auto) Lymph # (Auto) [place] # (Auto) Eos # (Auto) Baso # (Auto) Abs Immat Gran (auto) Absolute Neuts (auto) Absolute Nucleated RBC 0.000 Nucleated RBC % (auto) 0.0 PT 11.2 INR 0.9 VBG pH VBG pCO2 VBG pO2 VBG HCO3 VBG O2 Saturation VBG Base Excess Anion Gap 29 H 25 H Estim Creat Clear Calc 115.5 105.2 Estimated GFR > 60 > 60 Random Glucose 81 85 Calcium 8.8 8.9 Magnesium 2.3 Total Bilirubin 1.2 H Direct Bilirubin 0.5 AST 146 H ALT 116 H Alkaline Phosphatase 92 Total Protein 6.3 L Albumin 4.1 Lipase Urine Color Urine Appearance Urine pH Ur Specific [place] Urine Protein Urine Glucose (UA) Urine Ketones Urine Blood Urine Nitrite Ur Leukocyte Esterase Urine RBC Urine WBC Ur Squamous Epith Cells Ur Transition Epith Cell Urine Bacteria Hyaline Casts Granular Casts Salicylates Urine Opiates Screen Ur Buprenorphine Scrn Ur Oxycodone Screen Urine Methadone Screen Urine Fentanyl Screen Acetaminophen Ur Barbiturates Screen Ur Phencyclidine Scrn Ur Amphetamines Screen U Benzodiazepines Scrn Urine Cocaine Screen U Marijuana (THC) Screen Ethyl Alcohol Assessment and Plan (1) Alcohol withdrawal: Status: Acute Plan 55M PMH alcohol dependence, mood disorder presented with withdrawal symptoms Alcohol dependence with acute withdrawal and starvations/alcoholic ketoacidosis Phenobarb protocol, monitor CIWA, monitor on telemetry, monitor electrolytes, vitamin replacement Epistaxis and bleeding gums bright red blood per rectum Has likely chronic thrombocytopenia from alcohol, though not significant enough to cause bleeding Monitor hemoglobin, no further bleeding Mood disorder Continue Remeron, trazodone, gabapentin DVT prophylaxis-mechanical due to bleeding Full code reason for continued hospitalization: active withdrawal Quality Stroke Does the patient have a stroke diagnosis?: No VTE Prior VTE?: No VTE Risk Level:: Medical - moderate - high VTE Device Contraindication: Treatment Not Indicated VTE Drug Contraindication: N/A - Med Ordered
[2025-04-27] MEDS: Ferrous Sulfate 324 MG TABLET.DR PO (10:44)
--- NOTE | 2025-04-27 15:21 | MHC.RECOVRN ---
Consult placed to Addiction Medicine for pt admitted w/ ETOH withdrawal.? On approach pt is resting in bed, eyes closed but woke easily to name being called. He reports mild tremor, headache, and anxiety but feels he has improved somewhat since admission. He complains of lack of sleep, intolerance of surrounding noise, and irritability. Pt reports he was abstinent for alcohol for 20 months while attending AA meetings and working with a sponsor. He returned to use this past February, most recently consuming ? handle of Vodka daily for the last month.? Pt states he is [facility] connected and has a worker that will help coordinate his admission to a recovery program prior to discharge.? ACS team to revisit pt, obtain JENA for [facility], and complete recovery evaluation once pt?s withdrawal symptoms have decreased and he is better able to participate in assessment.? ACS team available as needed?
--- NOTE | 2025-04-27 16:12 | PM.EVENT ---
Event Note Date of Service: 04/27/25 Event Note: Addiction consult placed for patient with AUD Chart reviewed and patient seen by certified veterinary technician -phenobarbital managing withdrawal sx -IV thiamine in place -patient requesting to rest. Plan: -recovery to follow up over the weekend--will update t/w re: any clinical changes Time Spent With Patient Time: Total time managing care of this patient today ____ minutes.
[2025-04-27] MEDS: Thiamine HCL 100 MG in 0.9 % Sodium Chloride 100 ML 202 MG IV (22:37)
[2025-04-28 04:00] VITALS: BP 132/82; PULSE 82; RESP 18; TEMP 37.1; O2SAT 96
--- NOTE | 2025-04-28 06:31 | PC.NURSE ---
The patient stated that he would like to see a peoplesoft hr developer for a consultation because he wants to continue eating healthy. The patient also mentioned that he has not had much of an appetite, so he would like to discuss this with the peoplesoft hr developer as well. A nutrition consultation was placed per the patient?s request.
[2025-04-28 07:05] VITALS: BP 135/78; PULSE 85; RESP 18; TEMP 37; O2SAT 95
[2025-04-28 08:06] LABS: Hematocrit 38.6 % (42.0-52.0); Hemoglobin 13.3 g/dl (14.0-18.0); Mean Corpuscular HGB Conc 34.5 g/dl (31.0-36.0); Mean Corpuscular Hemoglobin 31.1 pg (27.0-33.0); Mean Corpuscular Volume 90.4 fL (80.0-98.0); NRBC Abs Auto 0.000 X10*3/uL (0.0-0.012); NRBC Pct Auto 0.0 /100WBC (0.0-0.2); PLT CLUMP 1; Red Blood Count 4.27 X10*6/uL (4.60-5.80); White Blood Count 4.5 X10*3/uL (4.8-10.8)
[2025-04-28 08:07] LABS: Platelet Count 93 X10*3/uL (160-400)
[2025-04-28 08:26] LABS: Anion Gap 24 (12-20); Blood Urea Nitrogen 9 mg/dL (9-16); Calcium 9.5 mg/dL (8.4-10.2); Carbon Dioxide 22 mmol/L (22-29); Chloride 97 mmol/L (96-108); Creatinine Clr Calc Pharmacy 129.8; Estimated Glomerular Filt Rate > 60; Magnesium 2.0 mg/dL (1.6-2.6); Potassium 4.1 mmol/L (3.3-5.1); Sodium 139 mmol/L (135-145)
[2025-04-28] MEDS: Ferrous Sulfate 324 MG TABLET.DR PO (08:26)
[2025-04-28] MEDS: Thiamine HCL 100 MG in 0.9 % Sodium Chloride 100 ML 202 MG IV ×2 (08:26→20:42)
[2025-04-28 11:10] VITALS: BP 128/64; PULSE 95; RESP 18; TEMP 36.7; O2SAT 94
--- NOTE | 2025-04-28 11:23 | HO.PM.IMPN ---
Subjective Subjective Date of Service: 04/28/25 Interval History: some tremor Physical Exam Exam: Exam: General: AO X 3, diaphoretic, tremor Resp: CTA bilateral, no accessory muscles used CVS: S1,S2,RRR GI: soft, non tender, non distended Vital Signs: Vital Signs: Last Vital Signs Temp 98.1 F 04/28/25 11:10 Pulse 95 04/28/25 11:10 Resp 18 04/28/25 11:10 BP 128/64 04/28/25 11:10 Pulse Ox 94 04/28/25 11:10 O2 Del Method Room Air 04/28/25 11:10 BMI result Body Mass Index 26.5 Objective Data Active Medications Acetaminophen (Acetaminophen 325 Mg Tablet) 650 mg PO Q6H PRN PRN Reason: Pain, Mild 1-3,fever,headache Calcium Carbonate (Calcium Carbonate 750 Mg Tab.Chew) 750 mg PO Q4H PRN PRN Reason: Heartburn Escitalopram Oxalate (Escitalopram Oxalate 10 Mg Tablet) 10 mg PO DAILY [facility] Last Admin: 04/28/25 08:26 Dose: 10 mg Documented By: JASON Ferrous Sulfate (Ferrous Sulfate 324 Mg Tablet.) 324 mg PO DAILY [facility] Last Admin: 04/28/25 08:26 Dose: 324 mg Documented By: JASON Folic Acid (Folic Acid 1 Mg Tablet) 1 mg PO DAILY [facility] Last Admin: 04/28/25 08:26 Dose: 1 mg Documented By: JASON Gabapentin (Gabapentin 600 Mg Tablet) 600 mg PO TID [facility] Last Admin: 04/28/25 08:26 Dose: 600 mg Documented By: JASON Thiamine HCl 100 mg/ Sodium (Chloride) 101 mls @ 202 mls/hr IV BID [facility] Last Infusion: 04/28/25 09:00 Dose: Infused Documented By: JASON Magnesium Hydroxide (Milk Of Magnesia 30 Ml Oral.Susp) 30 ml PO DAILY PRN PRN Reason: Constipation Melatonin (Melatonin 3 Mg Tablet) 6 mg PO BEDTIME PRN PRN Reason: Insomnia Mirtazapine (Mirtazapine 15 Mg Tablet) 45 mg PO BEDTIME [facility] Last Admin: 04/27/25 22:01 Dose: 45 mg Documented By: TERRIE Multivitamins/Vitamin C (Multivitamin Tablet) 1 tab PO DAILY [facility] Last Admin: 04/28/25 08:26 Dose: 1 tab Documented By: JASON Omeprazole (Omeprazole 20 Mg Capsule.Dr) 20 mg PO DAILY@0630 [facility] Last Admin: 04/28/25 06:05 Dose: 20 mg Documented By: TERRIE Ondansetron HCl (Ondansetron Hcl 4 Mg/2 Ml Vial) 4 mg IVPUSH Q6H PRN PRN Reason: Nausea Pharmacy Consult (Consult Rx Etoh Phenob Im/Po) 1 each MISCELLANE ONCE PRN; Protocol PRN Reason: Consult order Phenobarbital (Phenobarbital 30 Mg Tablet) 60 mg PO BID [facility] Stop: 04/28/25 21:01 Last Admin: 04/28/25 08:26 Dose: 60 mg Documented By: JASON Phenobarbital (Phenobarbital 30 Mg Tablet) 30 mg PO BID [facility] Stop: 04/30/25 21:01 Phenobarbital (Phenobarbital 30 Mg Tablet) 30 mg PO DAILY [facility]; Protocol Stop: 05/02/25 09:01 Sodium Chloride (0.9 % Sodium Chloride Flush 3 Ml Syringe) 3 ml IVFLUSH QSHIFT [facility] Last Admin: 04/28/25 09:48 Dose: Not Given Documented By: JASON Non-Admin Reason: Previously Administered Trazodone HCl (Trazodone Hcl 50 Mg Tablet) 50 mg PO BEDTIME [facility] Last Admin: 04/27/25 22:01 Dose: 50 mg Documented By: TERRIE Labs 04/28/25 07:26 04/28/25 07:26 Labs: Laboratory Results - last 24 hr 04/28/25 07:26 MCV 90.4 MCH 31.1 MCHC 34.5 RDW 13.5 Plt Count 93 L MPV 11.6 Absolute Nucleated RBC 0.000 Nucleated RBC % (auto) 0.0 Anion Gap 24 H Estim Creat Clear Calc 129.8 Estimated GFR > 60 Random Glucose 102 Calcium 9.5 D Magnesium 2.0 Assessment and Plan (1) Alcohol withdrawal: Status: Acute Plan 55M PMH alcohol dependence, mood disorder presented with withdrawal symptoms Alcohol dependence with acute withdrawal and starvations/alcoholic ketoacidosis Phenobarb protocol, monitor CIWA, monitor on telemetry, monitor electrolytes, vitamin replacement Epistaxis and bleeding gums bright red blood per rectum resolved Mood disorder Continue Remeron, trazodone, gabapentin DVT prophylaxis-mechanical due to bleeding Full code reason for continued hospitalization: active withdrawal Quality Stroke Does the patient have a stroke diagnosis?: No VTE Prior VTE?: No VTE Risk Level:: Medical - moderate - high VTE Device Contraindication: Treatment Not Indicated VTE Drug Contraindication: N/A - Med Ordered
--- NOTE | 2025-04-28 14:27 | MHC.RECOVRN ---
Met with Robert in 484 after receiving an addiction consult for evaluation of AUD. Discussed alcohol use, risk factors, tx history and recovery supports (See recovery eval for more info). Pt stated he feels withdrawal symtpoms have much improved compared to yesterday but stills struggles with appetite, diarrhea, and brain fog . Pt expressed interest in discussing OTTO with the provider. He states he wants to go bed to bed meaning inpatient treatment until he is able to stand on his own feet and maintain sobriety. Pt states he has been in touch with Julisa Beal cell room supervisor at the [facility] and is planning to go for dual diagnosis tx for veterans AUD/PTSD following dc from the hospital . Attempted to obtain JENA for Julisa Beal [phone] however pt declined to consent . Stated he sees no reason for it and that he has a good connection with her and does not wish to sign JENA as he has already spoken with her and made plans for tx following dc. Pt declined outpatient appointment for tx of his AUD such as at the [facility]. Harm reduction discussed briefly as pt stated he is all or nothing and is striving for complete abstinence rather than moderation or harm reduction. ACS team will continue to provide recovery support as needed.
[2025-04-28] MEDS: 0.9 % Sodium Chloride Flush 3 ML SYRINGE IVFLUSH ×2 (14:34→20:41)
[2025-04-28 15:19] VITALS: BP 110/70; PULSE 87; RESP 18; TEMP 36.9; O2SAT 95
[2025-04-28 20:00] VITALS: BP 120/73; PULSE 84; RESP 16; TEMP 36.4; O2SAT 97
[2025-04-28 23:43] VITALS: BP 135/76; PULSE 82; RESP 16; TEMP 36.6; O2SAT 97
[2025-04-29 00:10] LABS: OBS Int Ctl Valid YES
[2025-04-29 00:14] LABS: OBS1 POSITIVE (NEGATIVE)
[2025-04-29 03:51] VITALS: BP 113/69; PULSE 68; RESP 18; TEMP 36.8; O2SAT 97
[2025-04-29 08:00] VITALS: BP 137/75; PULSE 91; RESP 18; TEMP 36.7; O2SAT 91
--- NOTE | 2025-04-29 09:19 | P.PNIM_ITS ---
Subjective Subjective Date of Service: 04/29/25 Interval History: some tremor Physical Exam 2 Exam: Exam: General: AO X 3, diaphoretic, tremor Resp: CTA bilateral, no accessory muscles used CVS: S1,S2,RRR GI: soft, non tender, non distended Vital Signs: Vital Signs: Last Vital Signs Temp 98.0 F 04/29/25 08:00 Pulse 91 04/29/25 08:00 Resp 18 04/29/25 08:00 BP 137/75 04/29/25 08:00 Pulse Ox 91 L 04/29/25 08:00 O2 Del Method Room Air 04/29/25 08:00 BMI result Body Mass Index 26.5 Objective Data Active Medications Acetaminophen (Acetaminophen 325 Mg Tablet) 650 mg PO Q6H PRN PRN Reason: Pain, Mild 1-3,fever,headache Last Admin: 04/28/25 14:33 Dose: 650 mg Documented By: JASON Calcium Carbonate (Calcium Carbonate 750 Mg Tab.Chew) 750 mg PO Q4H PRN PRN Reason: Heartburn Escitalopram Oxalate (Escitalopram Oxalate 10 Mg Tablet) 10 mg PO DAILY [facility] Last Admin: 04/28/25 08:26 Dose: 10 mg Documented By: JASON Ferrous Sulfate (Ferrous Sulfate 324 Mg Tablet.Dr) 324 mg PO DAILY [facility] Last Admin: 04/28/25 08:26 Dose: 324 mg Documented By: JASON Folic Acid (Folic Acid 1 Mg Tablet) 1 mg PO DAILY [facility] Last Admin: 04/28/25 08:26 Dose: 1 mg Documented By: JASON Gabapentin (Gabapentin 600 Mg Tablet) 600 mg PO TID [facility] Last Admin: 04/28/25 20:41 Dose: 600 mg Documented By: GEO Magnesium Hydroxide (Milk Of Magnesia 30 Ml Oral.Susp) 30 ml PO DAILY PRN PRN Reason: Constipation Melatonin (Melatonin 3 Mg Tablet) 6 mg PO BEDTIME PRN PRN Reason: Insomnia Mirtazapine (Mirtazapine 15 Mg Tablet) 45 mg PO BEDTIME [facility] Last Admin: 04/28/25 20:41 Dose: 45 mg Documented By: GEO Multivitamins/Vitamin C (Multivitamin Tablet) 1 tab PO DAILY [facility] Last Admin: 04/28/25 08:26 Dose: 1 tab Documented By: JASON Omeprazole (Omeprazole 20 Mg Capsule.) 20 mg PO DAILY@0630 [facility] Last Admin: 04/29/25 06:06 Dose: 20 mg Documented By: GEO Ondansetron HCl (Ondansetron Hcl 4 Mg/2 Ml Vial) 4 mg IVPUSH Q6H PRN PRN Reason: Nausea Pharmacy Consult (Consult Rx Etoh Phenob Im/Po) 1 each MISCELLANE ONCE PRN; Protocol PRN Reason: Consult order Phenobarbital (Phenobarbital 30 Mg Tablet) 30 mg PO BID [facility] Stop: 04/30/25 21:01 Phenobarbital (Phenobarbital 30 Mg Tablet) 30 mg PO DAILY [facility]; Protocol Stop: 05/02/25 09:01 Sodium Chloride (0.9 % Sodium Chloride Flush 3 Ml Syringe) 3 ml IVFLUSH QSHIFT [facility] Last Admin: 04/28/25 20:41 Dose: 3 ml Documented By: GEO Thiamine HCl (Thiamine Hcl 100 Mg Tablet) 100 mg PO BID [facility] Trazodone HCl (Trazodone Hcl 50 Mg Tablet) 50 mg PO BEDTIME [facility] Last Admin: 04/28/25 20:41 Dose: 50 mg Documented By: GEO Labs 04/28/25 07:26 04/28/25 07:26 Labs: Laboratory Results - last 24 hr 04/28/25 23:58 Stool Occult Blood POSITIVE Assessment and Plan (1) Alcohol withdrawal: Status: Acute Plan 55M PMH alcohol dependence, mood disorder presented with withdrawal symptoms Alcohol dependence with acute withdrawal and starvations/alcoholic ketoacidosis Phenobarb protocol, monitor CIWA - still with some withdrawal, monitor on telemetry, monitor electrolytes, vitamin replacement Epistaxis and bleeding gums bright red blood per rectum resolved Mood disorder Continue Remeron, trazodone, gabapentin DVT prophylaxis-mechanical due to bleeding Full code reason for continued hospitalization: active withdrawal Quality Stroke Does the patient have a stroke diagnosis?: No VTE Prior VTE?: No VTE Risk Level:: Medical - moderate - high VTE Device Contraindication: Treatment Not Indicated VTE Drug Contraindication: N/A - Med Ordered
[2025-04-29] MEDS: Ferrous Sulfate 324 MG TABLET.DR PO (09:30)
[2025-04-29 11:38] VITALS: BP 123/78; PULSE 85; RESP 16; TEMP 37.6; O2SAT 95
[2025-04-29 13:32] LABS: Hematocrit 38.5 % (42.0-52.0); Hemoglobin 13.4 g/dl (14.0-18.0); Mean Corpuscular HGB Conc 34.8 g/dl (31.0-36.0); Mean Corpuscular Hemoglobin 31.6 pg (27.0-33.0); Mean Corpuscular Volume 90.8 fL (80.0-98.0); NRBC Abs Auto 0.000 X10*3/uL (0.0-0.012); NRBC Pct Auto 0.0 /100WBC (0.0-0.2); PLT CLUMP 1; Red Blood Count 4.24 X10*6/uL (4.60-5.80)
[2025-04-29 13:34] LABS: White Blood Count 5.3 X10*3/uL (4.8-10.8)
[2025-04-29 13:35] LABS: Platelet Count 119 X10*3/uL (160-400)
[2025-04-29 13:42] LABS: Alanine Aminotransferase 147 U/L (0-40); Albumin Level 4.4 g/dL (3.5-5.0); Alkaline Phosphatase 120 U/L (39-117); Anion Gap 18 (12-20); Aspartate Amino Transferase 160 U/L (5-37); Blood Urea Nitrogen 6 mg/dL (9-16); Calcium 9.7 mg/dL (8.4-10.2); Carbon Dioxide 26 mmol/L (22-29); Chloride 95 mmol/L (96-108); Creatinine Clr Calc Pharmacy 155.3; Estimated Glomerular Filt Rate > 60; Magnesium 1.6 mg/dL (1.6-2.6); Potassium 3.6 mmol/L (3.3-5.1); Sodium 135 mmol/L (135-145); Total Protein 6.9 g/dL (6.5-8.0)
[2025-04-29 15:43] VITALS: BP 131/80; PULSE 80; RESP 20; TEMP 36.1; O2SAT 97
--- NOTE | 2025-04-29 16:02 | MHC.RECOVRN ---
Addendum entered by Elba Alvarez RN 04/29/25 16:17: This RN was informed that pt has changed his mind and is agreeable to sign JENA . JENA for Julisa Beal signed. Original Note: Met with pt in f/u. Pt worried about possibly discharging tomorrow. He does not want to go home unless there is a plan for continued inpatient treatment through the [facility]. Declined JENA for [facility] worker Julisa Beal and for assistant professor of drama to communicate with Julisa on Wednesday. Pt states he's made verbal arrangements to go to the [facility] treatment facility next week , however does not have his cell phone with him and is worried Julisa will be on vacation this week and unable to assist with placement. Jul[facility]'s phone # at the [facility] was provided to pt and pt was encouraged to contact her on Wednesday and inquire about treatment plan following dc from [facility] [facility].
[2025-04-29 20:00] VITALS: BP 121/69; PULSE 77; RESP 20; TEMP 36.3; O2SAT 96
[2025-04-30 03:36] VITALS: BP 143/86; PULSE 92; RESP 19; TEMP 36.6; O2SAT 98
[2025-04-30 07:44] VITALS: BP 112/81; PULSE 85; RESP 20; TEMP 36.9; O2SAT 95
[2025-04-30] MEDS: Ferrous Sulfate 324 MG TABLET.DR PO (07:48)
--- NOTE | 2025-04-30 09:05 | P.DS_ITS ---
DS: Providers Provider Date of admission: 04/26/25 17:47 Date of discharge: 04/30/25 Primary care physician: None Physician Consults: 04/26/25 18:05 Addiction Medicine Provider Routine Consulting Provider: Addiction Covering Reason for consultation: etoh 04/27/25 21:48 Addiction Medicine Provider Routine Consulting Provider: Addiction Covering Reason for consultation: ETOH withdrawal DS: Diagnosis Discharge Diagnosis (1) Alcohol withdrawal: Status: Acute DS: Summary Hospital Course Hospital Course: from initial hpi: 55M PMH alcohol dependence, mood disorder presented with withdrawal symptoms. Patient states that he has been trying to cut back on his drinking and has since been starting to have difficulty sleeping, tremulous so he came to ED. Patient is also noted worsening appetite over the past week with close to 0 nutritional intake. Also noted to have epistaxis, bleeding gums, bright red blood per rectum. In ED noted to have anion gap metabolic acidosis with positive ketones in urine. hospital course: Patient was admitted for alcohol dependence with acute withdrawal and starvation/alcoholic ketoacidosis. Was put on phenobarbital protocol and given vitamins and IV fluids. Symptoms slowly resolved. Patient is planning on seeking inpatient detox bed on discharge. For epistaxis and bleeding gums with bright red blood per rectum this resolved patient had no significant blood loss anemia. For mood disorder was continued on Remeron, trazodone, gabapentin. He is feeling better and will be discharged home. Time Attestation Discharge Coordination Time (in mins): 34 Quality: Safe Use of Opioids Does Pt have an Active Cancer Diagnosis on the Problem List?: No Quality: Stroke Does the patient have a stroke diagnosis?: No Physical Exam Exam: Exam: General: AO X 3, no acute distress Resp: CTA bilateral, no accessory muscles used CVS: S1,S2,RRR GI: soft, non tender, non distended Vital Signs: Vital Signs: Last Vital Signs Temp 98.5 F 04/30/25 07:44 Pulse 85 04/30/25 07:44 Resp 20 04/30/25 07:44 BP 112/81 04/30/25 07:44 Pulse Ox 95 04/30/25 07:44 O2 Del Method Room Air 04/30/25 07:44 BMI result Body Mass Index 26.5 DS: Data Data Completed and Pending Labs on day of discharge: Laboratory Results - last 24 hr 04/29/25 13:09 WBC 5.3 RBC 4.24 L Hgb 13.4 L Hct 38.5 L MCV 90.8 MCH 31.6 MCHC 34.8 RDW 13.0 Plt Count 119 L D MPV 11.5 Absolute Nucleated RBC 0.000 Nucleated RBC % (auto) 0.0 Sodium 135 Potassium 3.6 Chloride 95 L Carbon Dioxide 26 Anion Gap 18 BUN 6 L Creatinine 0.61 Estim Creat Clear Calc 155.3 Estimated GFR > 60 Random Glucose 121 H Calcium 9.7 Magnesium 1.6 Total Bilirubin 0.6 Direct Bilirubin 0.2 AST 160 H ALT 147 H Alkaline Phosphatase 120 H Total Protein 6.9 Albumin 4.4 Discharge Plan Discharge Anticipated Discharge Date/Time: 04/30/25 09:02 Patient Disposition: Home, Self-Care Discharge Diagnosis: etoh withdrawal Referrals: Physician,None [Primary Care Provider, Medical] - 1 Week Discharge Medications: New magnesium oxide 400 mg (241.3 mg magnesium) Tablet 400 mg PO BIDPC 90 Days Qty: 180 0RF folic acid 1 mg Tablet 1 mg PO DAILY 90 Days Qty: 90 0RF thiamine mononitrate (vit B1) 100 mg Tablet 100 mg PO BID 90 Days Qty: 180 0RF Continued multivitamin Tablet 1 tab PO DAILY gabapentin 600 mg Tablet 600 mg PO TID trazodone 100 mg Tablet 50 mg PO BEDTIME mirtazapine 45 mg Tablet 45 mg PO BEDTIME escitalopram oxalate 10 mg Tablet 10 mg PO DAILY ferrous gluconate 324 mg (37.5 mg iron) Tablet 324 mg PO DAILY Discharge Orders: Discharge Order (Routine); Ordered 04/30/25 Ordered By: Yayo Godinez Diet: Advance to usual diet Activity on Discharge: As tolerated Stand Alone Forms: Patient Portal Discharge page Print Language: [place] Care Plan Goals: recovery Health Concerns: etoh Plan of Treatment: vitamin supplements, avoid alcohol Assessment: see above
--- NOTE | 2025-04-30 09:28 | MHC.CM.PN ---
Pt. has been medically cleared to [place], he will go home via [facility], plan is self care.
== END 2025-04-30 10:07 | disposition home or self-care (01) | DRG 897 ==
LOC: HO.ED 17:57 → HO.EDOVER 17:58 → HO.IMC 04-27 19:17
PROVIDERS: Emergency Medicine; Physician Assistant; Admitting Provider Internal Medicine; Emergency Provider Emergency Medicine Emergency Medical Services; Visit Provider Internal Medicine
DX: F10.239 Alcohol dependence with withdrawal, unspecified (principal); E87.29 Other acidosis; K62.5 Hemorrhage of anus and rectum; R04.0 Epistaxis; Y90.6 Blood alcohol level of 120-199 mg/100 ml; F39 Unspecified mood [affective] disorder; Z79.899 Other long term (current) drug therapy
CPT/HCPCS: 36415; 80048; 80076; 80143; 80179; 80307; 81001; 82272; 82803; 83690; 83735; 85025; 85027; 85610; 93005; 99285; J1808; J2405; J2560; J3360; J3411; J3475; J7120; S9485

== ENCOUNTER → 2025-04-26 13:03 | Outpatient (BNV) | payer OTHER, SELFPAY | PROVIDERS: Admitting Provider Internal Medicine; Emergency Provider Emergency Medicine Emergency Medical Services; Visit Provider Internal Medicine Cardiovascular Disease | DX: I45.10 Unspecified right bundle-branch block (principal) | CPT/HCPCS: 93010 ==

== ENCOUNTER → 2025-04-26 17:47 | Outpatient (BNV) | payer OTHER, SELFPAY | PROVIDERS: Admitting Provider Internal Medicine; Emergency Provider Emergency Medicine Emergency Medical Services; Visit Provider Internal Medicine | DX: F10.239 Alcohol dependence with withdrawal, unspecified (principal); E87.20 Acidosis, unspecified; T73.0XXA Starvation, initial encounter | CPT/HCPCS: 99222; 99232; 99233; 99239 ==